=== PATIENT | female | born 1970 | race Caucasian/White ===

== ENCOUNTER 2021-12-17 21:31 | Inpatient (IN) | payer BC, MEDICAID ==
[~2021-12-17] VITALS: Ht 163.8 cm; Wt 118.4 kg
[2021-12-17 23:09] LABS: BASOPHILS % 0.2 % (0.0-2.0); EOSINOPHILS % 0.5 % (0.0-5.0); HEMATOCRIT. 52.1 % (36.0-48.0); HEMOGLOBIN. 16.6 g/dL (12.0-16.0); LYMPHOCYTES % 8.3 % (20.0-50.0); MEAN CORPUSCULAR HEMOGLOBIN 26.2 pg (28.0-32.0); MEAN CORPUSCULAR VOLUME 82.2 fL (81.0-99.0); MEAN PLATELET VOLUME 6.5 fl (7.4-10.4); MONOCYTES % 2.1 % (2.0-8.0); NEUTROPHILS % 88.9 % (40.0-76.0); PLATELET 620 x1000/uL (130-400); RED BLOOD CELL COUNT 6.34 mill/uL (4.2-5.4); RED CELL DISTRIBUTION WIDTH 14.9 % (11.6-14.6)
[2021-12-17 23:17] LABS: CHLORIDE 96 mEq/L (98-107)
[2021-12-17] MEDS ORDERED: ONDANSETRON 4MG ODT PO ONE (23:30)
[2021-12-18 00:11] LABS: HCG SCREEN NEGATIVE
[2021-12-18] MEDS ORDERED: SODIUM CHLORIDE 0.9% 1,000 ML IV ONE (00:15)
[2021-12-18] MEDS ORDERED: CEFTRIAXONE 1 G PREMIX 50 ML IV ONE (00:15)
[2021-12-18] MEDS: KCL 20MEQ/100ML PREMIX 100 ML IV SCH ×2 (00:15→02:15)
[2021-12-18] MEDS ORDERED: LACTATED RINGERS 1,000 ML IV ONE (00:15)
[2021-12-18] MEDS ORDERED: VANCOMYCIN 1G PREMIX 200 ML IV SCH (00:30)
[2021-12-18] MEDS ORDERED: ONDANSETRON HCL 4MG/2ML INJ ONE (00:37)
[2021-12-18] MEDS ORDERED: METRONIDAZOLE 500 MG PREMIX 100 ML IV ONE (04:31)
[2021-12-18] MEDS: ENOXAPARIN 30MG/0.3ML SYR SUBCUT SCH ×2 (12:00→23:20)
[2021-12-18] MEDS ORDERED: ENOXAPARIN 40MG/0.4ML SYR SUBCUT SCH (12:45)
[2021-12-18] MEDS ORDERED: GUAIFENESIN 200MG/10ML SUGAR FREE UDC PO PRN (12:45)
[2021-12-18] MEDS ORDERED: DOCUSATE SODIUM 100MG CAPSULE PO PRN (12:45)
[2021-12-18] MEDS ORDERED: MAGNESIUM/ALUMINUM HYDROXIDE/SIMETHICONE 30ML UDC PO PRN (12:45)
[2021-12-18] MEDS ORDERED: ONDANSETRON HCL 4MG/2ML INJ IV PRN (12:45)
[2021-12-18] MEDS ORDERED: ACETAMINOPHEN 325MG TABLET PO PRN (12:45)
[2021-12-18] MEDS ORDERED: TRAMADOL 50MG TABLET PO PRN (12:45)
[2021-12-18] MEDS ORDERED: LEVOFLOXACIN 500MG PREMIX 100 ML IV SCH (12:45)
[2021-12-18] MEDS ORDERED: KCL 20MEQ/100ML PREMIX 100 ML IV SCH (13:15)
[2021-12-18] MEDS: PANTOPRAZOLE SODIUM 40 MG/VIAL IV SCH ×2 (13:18→14:07)
[2021-12-18] MEDS: SODIUM CHLORIDE 0.9% 1,000 ML IV SCH ×2 (13:18→23:20)
[2021-12-18 13:25] LABS: HEMATOCRIT. 44.7 % (36.0-48.0); HEMOGLOBIN. 14.6 g/dL (12.0-16.0); MEAN CORPUSCULAR HEMOGLOBIN 26.4 pg (28.0-32.0); MEAN CORPUSCULAR VOLUME 80.7 fL (81.0-99.0); PLATELET 489 x1000/uL (130-400); RED BLOOD CELL COUNT 5.54 mill/uL (4.2-5.4); RED CELL DISTRIBUTION WIDTH 14.8 % (11.6-14.6)
[2021-12-18] MEDS ORDERED: METRONIDAZOLE 500 MG PREMIX 100 ML IV SCH (14:00)
[2021-12-18 15:44] LABS: PLATELET ESTIMATE INCREASED
[2021-12-18 20:20] VITALS: BP_SYST 112; BP_DIAS 62; BP_DIAS 63
[2021-12-18] MEDS: METRONIDAZOLE 500 MG PREMIX 100 ML IV SCH (23:21)
[2021-12-19] VITALS: BP 134/67
[2021-12-19] MEDS ORDERED: DESM0.2T4 PO (00:19)
[2021-12-19] MEDS ORDERED: DEXTROSE 50% WATER 50ML SYRINGE IV PRN (00:30)
[2021-12-19 03:50] VITALS: BP 120/90
[2021-12-19] MEDS: BLOOD SUGAR DIAGNOSTIC STRIP TEST SCH ×4 (05:46→21:26)
[2021-12-19] MEDS: METRONIDAZOLE 500 MG PREMIX 100 ML IV SCH ×3 (05:46→21:27)
[2021-12-19] MEDS: INSULIN LISPRO 100 UNITS/ML SUBCUT SCH ×4 (05:47→21:00)
[2021-12-19 07:09] LABS: HEMATOCRIT. 41.5 % (36.0-48.0); HEMOGLOBIN. 13.7 g/dL (12.0-16.0); MEAN CORPUSCULAR HEMOGLOBIN 26.4 pg (28.0-32.0); MEAN CORPUSCULAR VOLUME 79.8 fL (81.0-99.0); MEAN PLATELET VOLUME 7.4 fl (7.4-10.4); PLATELET 474 x1000/uL (130-400); RED BLOOD CELL COUNT 5.19 mill/uL (4.2-5.4); RED CELL DISTRIBUTION WIDTH 14.8 % (11.6-14.6)
[2021-12-19 07:55] VITALS: BP 122/88
[2021-12-19 08:08] LABS: CHLORIDE 100 mEq/L (98-107)
[2021-12-19 08:24] LABS: HDL CHOLESTEROL 72 mg/dL (40-59); LDL CHOLESTEROL 45 mg/dL (5-100)
[2021-12-19] MEDS ORDERED: NALOXONE HCL 0.4MG/ML VIAL IV PRN (11:15)
[2021-12-19] MEDS ORDERED: DESMOPRESSIN ACETATE 0.2 MG PO SCH (11:30)
[2021-12-19] MEDS ORDERED: LISI40TA13 PO (11:33)
[2021-12-19] MEDS ORDERED: GABA-290 PO (11:33)
[2021-12-19] MEDS ORDERED: CLOM25CA4 PO (11:33)
[2021-12-19] MEDS ORDERED: AMLO10TA80 PO (11:34)
[2021-12-19] MEDS ORDERED: CLOM50CA2 PO (11:34)
[2021-12-19] MEDS ORDERED: BUPR-46 PO (11:35)
[2021-12-19] MEDS ORDERED: ALPR-340 PO (11:36)
[2021-12-19] MEDS ORDERED: BUPR-315 PO (11:36)
[2021-12-19] MEDS ORDERED: ERGO1250 PO (11:38)
[2021-12-19] MEDS ORDERED: ALBU6.7H9 INH (11:39)
[2021-12-19] MEDS ORDERED: BUPROPION HCL 150 MG PO SCH (12:30)
[2021-12-19 13:00] VITALS: BP 120/78
[2021-12-19] MEDS: BUPROPION HCL 150MG TABLET XL 24HR PO SCH ×2 (13:08→18:02)
[2021-12-19] MEDS: ENOXAPARIN 30MG/0.3ML SYR SUBCUT SCH ×2 (13:09→23:19)
[2021-12-19] MEDS: LEVOFLOXACIN 500MG PREMIX 100 ML IV SCH (13:09)
[2021-12-19] MEDS ORDERED: VANCOMYCIN 2,000 MG in DEXT 5% WATER 500 ML IV NR (13:30)
[2021-12-19] MEDS ORDERED: ALBUTEROL 6.7GM HFA INHALER INH SCH (13:30)
[2021-12-19] MEDS: DESMOPRESSIN ACETATE 0.1MG TABLET PO SCH ×2 (14:05→18:03)
[2021-12-19 15:55] VITALS: BP 135/70
[2021-12-19] MEDS: AMLODIPINE 10MG TABLET PO SCH (15:56)
[2021-12-19] MEDS: GABAPENTIN 300MG CAPSULE PO SCH ×2 (15:56→21:27)
[2021-12-19] MEDS: DEXT 5%/0.9% NACL 1,000 ML IV SCH (15:58)
[2021-12-19] MEDS ORDERED: ERGOCALCIFEROL 50000UNITS CAPSULE PO SCH (16:00)
[2021-12-19] MEDS ORDERED: ALPRAZOLAM 0.5 MG TABLET PO SCH (17:00)
[2021-12-19] MEDS ORDERED: BUPROPION HCL 300 MG PO SCH (17:00)
[2021-12-19] MEDS ORDERED: ALPRAZOLAM 0.5 MG PO SCH (17:00)
[2021-12-19] MEDS ORDERED: ALPRAZOLAM 0.5 MG TABLET PO PRN (17:45)
[2021-12-19 19:45] VITALS: BP 124/66
[2021-12-19 19:52] LABS: CLARITY URINE CLOUDY (CLEAR); COLOR URINE DARK YELLOW (YELLOW); KETONES URINE NEGATIVE (NEGATIVE); LEUKOCYTE ESTERASE URINE NEGATIVE (NEGATIVE); NITRITE URINE NEGATIVE (NEGATIVE); OCCULT BLOOD URINE NEGATIVE (NEGATIVE); PROTEIN URINE 1+ (NEGATIVE); SPECIFIC GRAVITY URINE 1.025 (1.005-1.030); UROBILINOGEN URINE 0.2 E.U./dL (0.2-1.0)
[2021-12-19] MEDS: ALBUTEROL (0.083%) 2.5MG/3ML NEB HHN SCH (20:54)
[2021-12-19] MEDS ORDERED: CLOMIPRAMINE HCL 25 MG PO SCH (21:00)
[2021-12-19] MEDS ORDERED: CLOMIPRAMINE HCL 50 MG PO SCH (21:00)
[2021-12-19] MEDS ORDERED: VANCOMYCIN 750MG PREMIX 150 ML IV SCH (23:00)
[2021-12-20] VITALS: BP 123/65
[2021-12-20] MEDS: ALBUTEROL (0.083%) 2.5MG/3ML NEB HHN SCH ×4 (02:45→21:29)
[2021-12-20 03:30] VITALS: BP 110/68
[2021-12-20] MEDS: DEXT 5%/0.9% NACL 1,000 ML IV SCH ×2 (03:52→16:21)
[2021-12-20] MEDS: GABAPENTIN 300MG CAPSULE PO SCH ×3 (05:46→21:14)
[2021-12-20] MEDS: METRONIDAZOLE 500 MG PREMIX 100 ML IV SCH ×3 (05:47→21:15)
[2021-12-20] MEDS: BLOOD SUGAR DIAGNOSTIC STRIP TEST SCH ×4 (06:25→21:14)
[2021-12-20] MEDS: INSULIN LISPRO 100 UNITS/ML SUBCUT SCH ×4 (07:41→21:00)
[2021-12-20 08:00] VITALS: BP 139/71
[2021-12-20] MEDS: VANCOMYCIN 1G PREMIX 200 ML IV SCH (09:01)
[2021-12-20] MEDS: BUPROPION HCL 150MG TABLET XL 24HR PO SCH ×2 (09:02→16:20)
[2021-12-20] MEDS: DESMOPRESSIN ACETATE 0.1MG TABLET PO SCH ×2 (09:02→16:20)
[2021-12-20] MEDS: AMLODIPINE 10MG TABLET PO SCH (09:02)
[2021-12-20] MEDS: PANTOPRAZOLE SODIUM 40 MG/VIAL IV SCH (09:02)
[2021-12-20] MEDS: LISINOPRIL 40MG TABLET PO SCH (09:03)
[2021-12-20 12:00] VITALS: BP 125/64
[2021-12-20] MEDS: LEVOFLOXACIN 500MG PREMIX 100 ML IV SCH (13:03)
[2021-12-20] MEDS: ENOXAPARIN 30MG/0.3ML SYR SUBCUT SCH (13:03)
[2021-12-20 13:11] LABS: BASOPHILS % 0.2 % (0.0-2.0); EOSINOPHILS % 0.1 % (0.0-5.0); HEMATOCRIT. 33.7 % (36.0-48.0); HEMOGLOBIN. 11.1 g/dL (12.0-16.0); LYMPHOCYTES % 6.1 % (20.0-50.0); MEAN CORPUSCULAR HEMOGLOBIN 26.2 pg (28.0-32.0); MEAN CORPUSCULAR VOLUME 79.4 fL (81.0-99.0); MEAN PLATELET VOLUME 6.9 fl (7.4-10.4); MONOCYTES % 6.3 % (2.0-8.0); NEUTROPHILS % 87.3 % (40.0-76.0); PLATELET 362 x1000/uL (130-400); RED BLOOD CELL COUNT 4.25 mill/uL (4.2-5.4); RED CELL DISTRIBUTION WIDTH 14.9 % (11.6-14.6)
[2021-12-20 13:22] LABS: CHLORIDE 97 mEq/L (98-107)
[2021-12-20] MEDS ORDERED: POTASSIUM CHLORIDE 20MEQ TABLET SR PO NR (14:00)
[2021-12-20 14:06] LABS: PLATELET ESTIMATE INCREASED
[2021-12-20 16:00] VITALS: BP 137/68
[2021-12-20 19:40] VITALS: BP 125/62
[2021-12-21] VITALS: BP 156/81
[2021-12-21] MEDS: DESMOPRESSIN ACETATE 0.1MG TABLET PO SCH ×2 (00:39→08:38)
[2021-12-21] MEDS: ENOXAPARIN 30MG/0.3ML SYR SUBCUT SCH (00:39)
[2021-12-21] MEDS: DEXT 5%/0.9% NACL 1,000 ML IV SCH (02:11)
[2021-12-21] MEDS: VANCOMYCIN 1G PREMIX 200 ML IV SCH (02:11)
[2021-12-21 03:30] VITALS: BP 135/72
[2021-12-21] MEDS: METRONIDAZOLE 500 MG PREMIX 100 ML IV SCH (05:39)
[2021-12-21] MEDS: GABAPENTIN 300MG CAPSULE PO SCH (05:39)
[2021-12-21] MEDS: BLOOD SUGAR DIAGNOSTIC STRIP TEST SCH (05:52)
[2021-12-21 06:41] LABS: CHLORIDE 102 mEq/L (98-107)
[2021-12-21] MEDS: INSULIN LISPRO 100 UNITS/ML SUBCUT SCH (07:47)
[2021-12-21 08:00] VITALS: BP 151/87
[2021-12-21] MEDS: LISINOPRIL 40MG TABLET PO SCH (08:38)
[2021-12-21] MEDS: BUPROPION HCL 150MG TABLET XL 24HR PO SCH (08:38)
[2021-12-21] MEDS: AMLODIPINE 10MG TABLET PO SCH (08:38)
[2021-12-21] MEDS: PANTOPRAZOLE SODIUM 40 MG/VIAL IV SCH (08:38)
[2021-12-21] MEDS: ALBUTEROL (0.083%) 2.5MG/3ML NEB HHN SCH ×2 (08:45)
[2021-12-21 10:44] VITALS: BP 154/90
[2021-12-21 10:45] VITALS: BP 154/90
[2021-12-21] MEDS ORDERED: POTASSIUM CHLORIDE 20MEQ TABLET SR PO SCH (11:00)
== END 2021-12-21 12:30 | disposition home or self-care (01) | DRG 871 ==
LOC: ER 21:31 → 6WST 12-18 01:39 → ENRESERV 12-18 18:42
PROVIDERS: ADMIT Hospitalist; ATTEND Hospitalist
PROC: 05HY33Z Insertion of Infusion Device into Upper Vein, Percutaneous Approach (ICD-10-PCS; principal; 2021-12-19)
PROC: B54MZZA Ultrasonography of Right Upper Extremity Veins, Guidance (ICD-10-PCS; 2021-12-19)
DX: A41.9 Sepsis, unspecified organism (principal); J18.9 Pneumonia, unspecified organism; E87.1 Hypo-osmolality and hyponatremia; E11.9 Type 2 diabetes mellitus without complications; F32.A Depression, unspecified; K52.9 Noninfective gastroenteritis and colitis, unspecified; K59.00 Constipation, unspecified; I10 Essential (primary) hypertension; J45.909 Unspecified asthma, uncomplicated; E87.6 Hypokalemia; R65.20 Severe sepsis without septic shock; R79.89 Other specified abnormal findings of blood chemistry; Z85.841 Personal history of malignant neoplasm of brain; Z90.49 Acquired absence of other specified parts of digestive tract
CPT/HCPCS: 36415; 36573; 71045; 74176; 80048; 80053; 80061; 81003; 82962; 83036; 83605; 83880; 84145; 84484; 84703; 85025; 87015; 87045; 87427; 87449; 93970; 96365; 96366; 96367; 96368; 96372; 96375; 99285; C1725; C1887; C1893; C9113; J0696; J1650; J1956; J2405; J3370; J3480; J3490; J7042; J7060